=== PATIENT | male | born 1970 | race American Indian/Alaskan Native ===

== ENCOUNTER 2019-04-04 05:26 | Emergency (ER) | payer BC ==
[2019-04-04 05:52] VITALS: BP 157/98
--- NOTE | 2019-04-04 09:11 | Emergency Department Report ---
ED General Adult HPI - General Chief complaint: Eye Problems Stated complaint: RIGHT EYE PAIN Time Seen by Provider: 04/04/19 09:05 Source: patient Mode of arrival: Ambulatory Limitations: No Limitations - History of Present Illness Initial comments: Os is a 48-year-old male who thought he might have gotten something in his eye at work. This occurred on Friday but cause no problem. Patient states that by Friday his eye was getting red and irritated. He does not complain of visual change nor the sensation of a foreign body. He does not complain of pain. He denies any URI type symptoms. He reports no sick contact. -: Gradual, days(s) Location: right (high) Improves with: none Worsens with: none Associated Symptoms: denies other symptoms - Related Data Previous Rx's Medication Instructions Recorded Last Taken Type Sulfacetamide Sodium 5 ml OP TID #1 drops 04/04/19 Unknown Rx [Sulfacetamide Sodium 10%] ED Review of Systems ROS: Stated complaint: RIGHT EYE PAIN Other details as noted in HPI Constitutional: denies: chills, fever Eyes: other (eye redness). denies: eye pain, eye discharge, vision change ENT: denies: ear pain, throat pain Respiratory: denies: cough, shortness of breath, wheezing Cardiovascular: denies: chest pain, palpitations Endocrine: no symptoms reported Gastrointestinal: denies: abdominal pain, nausea, diarrhea Genitourinary: denies: urgency, dysuria Musculoskeletal: denies: back pain, joint swelling, arthralgia Skin: denies: rash, lesions Neurological: denies: headache, weakness, numbness, paresthesias Psychiatric: denies: anxiety, depression Hematological/Lymphatic: denies: easy bleeding, easy bruising ED Past Medical Hx - Past Medical History Previous Medical History?: Yes Hx Hypertension: Yes Hx Diabetes: Yes - Surgical History Past Surgical History?: No - Social History Smoking Status: Never Smoker Substance Use Type: Alcohol - Medications Home Medications: Home Medications Medication Instructions Recorded Confirmed Last Taken Type Sulfacetamide Sodium 5 ml OP TID #1 drops 04/04/19 Unknown Rx [Sulfacetamide Sodium 10%] ED Physical Exam - General Limitations: No Limitations General appearance: alert, in no apparent distress - Head Head exam: Present: atraumatic, normocephalic - Eye Eye exam: Present: PERRL, EOMI, other (I do not see evidence of a foreign body. There is minimal arcus senilis seen. The conjunctiva is injected. There is no periorbital swelling or conjunctival edema. The cornea appears intact. There is no defect. The anterior chamber appears clear and deep.) - ENT ENT exam: Present: mucous membranes moist - Neck Neck exam: Present: normal inspection. Absent: tenderness, meningismus - Respiratory Respiratory exam: Present: normal lung sounds bilaterally. Absent: respiratory distress - Cardiovascular Cardiovascular Exam: Present: regular rate, normal rhythm. Absent: systolic murmur, diastolic murmur, rubs, gallop - GI/Abdominal GI/Abdominal exam: Present: soft, normal bowel sounds. Absent: distended, tenderness, guarding, rebound, rigid - Rectal Rectal exam: Present: deferred - Extremities Exam Extremities exam: Present: normal inspection - Back Exam Back exam: Present: normal inspection - Neurological Exam Neurological exam: Present: alert, oriented X3, CN II-XII intact. Absent: motor sensory deficit - Psychiatric Psychiatric exam: Present: normal affect, normal mood - Skin Skin exam: Present: warm, dry, intact, normal color. Absent: rash ED Course Vital Signs 04/04/19 05:50 Temperature 98.8 F Pulse Rate 70 Respiratory 20 Rate Blood Pressure 157/98 O2 Sat by Pulse 97 Oximetry Critical care attestation.: If time is entered above; I have spent that time in minutes in the direct care of this critically ill patient, excluding procedure time. ED Disposition Clinical Impression: Conjunctivitis Qualifiers: Conjunctivitis type: acute Acute conjunctivitis type: unspecified Laterality: right Qualified Code(s): H10.31 - Unspecified acute conjunctivitis, right eye Disposition: DC-01 TO HOME OR SELFCARE Is pt being admited?: No Does the pt Need Aspirin: No Condition: Stable Instructions: Conjunctivitis (ED) Additional Instructions: I do not note a foreign body or healing area on your cornea. A full eye exam is imperative. See your eye doctor that you tells me you have available or Dr. Hopkins as listed. Return to the emergency department any acute change in her vision. It is essential that you get a full eye exam by a qualified I practitioner tomorrow. Avoid contact with others as the conjunctivitis may be contagious. Prescriptions: Sulfacetamide Sodium [Sulfacetamide Sodium 10%] 5 ml OP TID #1 drops Referrals: usual, kindergarten instructional assistant [Other] - 24 Hours BENJI DIAZ MD [Staff Physician] - [facility] Time of Disposition: 09:12
== END 2019-04-04 09:28 | disposition home or self-care (01) ==
LOC: ED 05:26
DX: H10.9 Unspecified conjunctivitis (principal); I10 Essential (primary) hypertension; E11.9 Type 2 diabetes mellitus without complications; F10.10 Alcohol abuse, uncomplicated; Z79.899 Other long term (current) drug therapy

== ENCOUNTER 2020-11-29 14:34 | Emergency (ER) | payer BC ==
[2020-11-29 15:06] VITALS: BP 132/94
--- NOTE | 2020-11-29 15:43 | XRay Report ---
CHEST PA AND LATERAL VIEWS INDICATION: sob. COMPARISON: 09/22/2019 FINDINGS: Support devices: None. Heart: Within normal limits. Lungs/Pleura: There is patchy airspace disease in the right mid to lower lung and left lower lung. Ap ices are clear. No pleural abnormality. IMPRESSION: 1. Bilateral pneumonia, mild. Findings are suggestive of viral pneumonia. Signer Name: Juan Pablo Pyle MD Signed: 11/29/2020 3:38 PM Workstation Name: [id number]
[2020-11-29 16:35] LABS: Hematocrit 48.2 % (35.5-45.6); Hemoglobin 16.2 gm/dl (11.8-15.2); Mean Corpuscular HGB Conc 34 % (32-34); Mean Corpuscular Volume 89 fl (84-94); Platelet Count 324 K/mm3 (140-440); Red Blood Count 5.45 M/mm3 (3.65-5.03); Red Cell Distribution Width 13.4 % (13.2-15.2)
[2020-11-29 16:45] LABS: Alanine Aminotransferase 25 units/L (7-56); Albumin 3.8 g/dL (3.9-5); Blood Urea Nitrogen 13 mg/dL (9-20); Calcium 9.8 mg/dL (8.4-10.2); Hemolysis Index 5
[2020-11-29 16:56] LABS: BUN/Creatinine Ratio 19
[2020-11-29 17:13] LABS: Anisocytosis RARE; Giant Platelets Rare; Total Cells Counted 100
--- NOTE | 2020-11-29 17:34 | Emergency Department Report ---
- General Chief Complaint: Weakness Stated Complaint: COVID SYMPTOMS Time Seen by Provider: 11/29/20 17:23 Source: patient Mode of arrival: Ambulatory Limitations: No Limitations - History of Present Illness Initial Comments: Patient is a 50-year-old male presents emergency room with complaints of symptoms of COVID-19 that began 11/23/2020. He has associated loss of sense of smell and taste. He states he is also been having fatigue, generalized weakness, chills, diarrhea, dry cough. He denies any fever, shortness of breath, chest pain, abdominal pain, leg swelling. He denies any sick contacts or recent travel. He has not been vaccinated for COVID-19. He has not been vaishali lynsey for COVID-19. PMHx DM and HTN. No allergies to medications. - Related Data Previous Rx's Medication Instructions Recorded Last Taken Type Sulfacetamide Sodium 5 ml OP TID #1 drops 04/04/19 Unknown Rx [Sulfacetamide Sodium 10%] Azithromycin [Zithromax TAB] 250 mg PO QDAY 5 Days #6 tablet 11/29/20 Unknown Rx Benzonatate [Tessalon Perles] 100 mg PO Q8HR PRN #12 capsule 11/29/20 Unknown Rx guaiFENesin/DEXTROMETHORPHAN 1 each PO Q6HR PRN #12 capsule 11/29/20 Unknown Rx [Coricidin Hbp Chest Benjamín-Cough] Allergies Allergy/AdvReac Type Severity Reaction Status Date / Time No Known Allergies Allergy Unverified 09/22/19 14:02 ED Review of Systems ROS: Stated complaint: COVID SYMPTOMS Other details as noted in HPI Comment: All other systems reviewed and negative ED Past Medical Hx - Past Medical History Previous Medical History?: Yes Hx Hypertension: Yes Hx Diabetes: Yes - Surgical History Past Surgical History?: No - Social History Substance Use Type: Alcohol - Medications Home Medications: Home Medications Medication Instructions Recorded Confirmed Last Taken Type Sulfacetamide Sodium 5 ml OP TID #1 drops 04/04/19 Unknown Rx [Sulfacetamide Sodium 10%] Azithromycin [Zithromax TAB] 250 mg PO QDAY 5 Days #6 tablet 11/29/20 Unknown Rx Benzonatate [Tessalon Perles] 100 mg PO Q8HR PRN #12 capsule 11/29/20 Unknown Rx guaiFENesin/DEXTROMETHORPHAN 1 each PO Q6HR PRN #12 capsule 11/29/20 Unknown Rx [Coricidin Hbp Chest Benjamín-Cough] ED Physical Exam - General Limitations: No Limitations General appearance: alert, in no apparent distress - Head Head exam: Present: atraumatic, normocephalic - Eye Eye exam: Present: normal appearance - ENT ENT exam: Present: mucous membranes moist - Respiratory Respiratory exam: Present: normal lung sounds bilaterally. Absent: respiratory distress, wheezes, rales, rhonchi, stridor, chest wall tenderness, accessory muscle use, decreased breath sounds, prolonged expiratory - Cardiovascular Cardiovascular Exam: Present: regular rate, normal rhythm, normal heart sounds. Absent: systolic murmur, diastolic murmur, rubs, gallop - Neurological Exam Neurological exam: Present: alert, oriented X3 - Psychiatric Psychiatric exam: Present: normal affect, normal mood - Skin Skin exam: Present: warm, dry, intact ED Course Vital Signs 11/29/20 11/29/20 15:04 16:52 Temperature 98 F Pulse Rate 84 Respiratory 16 16 Rate Blood Pressure 132/94 [Left] O2 Sat by Pulse 96 100 Oximetry ED Medical Decision Making - Lab Data Result diagrams: 11/29/20 15:59 11/29/20 15:59 Lab Results 11/29/20 11/29/20 Range/Units 15:59 15:59 WBC 5.1 (4.5-11.0) K/mm3 RBC 5.45 H (3.65-5.03) M/mm3 Hgb 16.2 H (11.8-15.2) gm/dl Hct 48.2 H (35.5-45.6) % MCV 89 (84-94) fl MCH 30 (28-32) pg MCHC 34 (32-34) % RDW 13.4 (13.2-15.2) % Plt Count 324 (140-440) K/mm3 Assumption % (Auto) Special Effects Makeup Artist Add Manual Diff Complete Total Counted 100 Seg Neuts % (Manual) 49.0 (40.0-70.0) % Lymphocytes % (Manual) 30.0 (13.4-35.0) % Monocytes % (Manual) 21.0 H (0.0-7.3) % Nucleated RBC % Not Reportable Seg Neutrophils # Man 2.5 (1.8-7.7) K/mm3 Band Neutrophils # 0.0 K/mm3 Lymphocytes # (Manual) 1.5 (1.2-5.4) K/mm3 Abs React Lymphs (Man) 0.0 K/mm3 Monocytes # (Manual) 1.1 H (0.0-0.8) K/mm3 Eosinophils # (Manual) 0.0 (0.0-0.4) K/mm3 Basophils # (Manual) 0.0 (0.0-0.1) K/mm3 Metamyelocytes # 0.0 K/mm3 Myelocytes # 0.0 K/mm3 Promyelocytes # 0.0 K/mm3 Blast Cells # 0.0 K/mm3 WBC Morphology Not Reportable Hypersegmented Neuts Not Reportable Hyposegmented Neuts Not Reportable Hypogranular Neuts Not Reportable Smudge Cells Not Reportable Toxic Granulation Not Reportable Toxic Vacuolation Not Reportable Dohle Bodies Not Reportable Pelger-Huet Anomaly Not Reportable Wesley Rods Not Reportable Platelet Estimate Not Reportable Clumped Platelets Not Reportable Plt Clumps, EDTA Not Reportable Large Platelets Not Reportable Giant Platelets Rare Platelet Satelliting Not Reportable Plt Morphology Comment Not Reportable RBC Morphology Not Reportable Dimorphic RBCs Not Reportable Polychromasia Not Reportable Hypochromasia Not Reportable Poikilocytosis Not Reportable Anisocytosis Rare Microcytosis Not Reportable Macrocytosis Not Reportable Spherocytes Not Reportable Pappenheimer Bodies Not Reportable Sickle Cells Not Reportable Target Cells Not Reportable Tear Drop Cells Not Reportable Ovalocytes Not Reportable Helmet Cells Not Reportable [place] Bodies Not Reportable [place] Rings Not Reportable Hernán Cells Not Reportable Bite Cells Not Reportable Crenated Cell Not Reportable Elliptocytes Not Reportable Acanthocytes (Spur) Not Reportable Rouleaux Not Reportable Hemoglobin C Crystals Not Reportable Schistocytes Not Reportable Malaria parasites Not Reportable Albino Bodies Not Reportable Hem Pathologist Commnt No Sodium 134 L (137-145) mmol/L Potassium 3.5 L (3.6-5.0) mmol/L Chloride 91.9 L (98-107) mmol/L Carbon Dioxide 31 H (22-30) mmol/L Anion Gap 15 mmol/L BUN 13 (9-20) mg/dL Creatinine 0.7 L (0.8-1.3) mg/dL Estimated GFR > 60 ml/min BUN/Creatinine Ratio 19 % Glucose 108 H (75-100) mg/dL Calcium 9.8 (8.4-10.2) mg/dL Total Bilirubin 0.50 (0.1-1.2) mg/dL AST 30 (5-40) units/L ALT 25 (7-56) units/L Alkaline Phosphatase 54 (35-129) units/L Total Protein 7.6 (6.3-8.2) g/dL Albumin 3.8 L (3.9-5) g/dL Albumin/Globulin Ratio 1.0 % - Radiology Data Radiology results: report reviewed Ordering Physician: SHAHIDA MORRELL MD Date of Service: 11/29/20 Procedure(s): XR chest routine 2V Accession Number(s): [id number] cc: ED MD PORSCHE Fluoro Time In Minutes: CHEST PA AND LATERAL VIEWS INDICATION: sob. COMPARISON: 09/22/2019 FINDINGS: Support devices: None. Heart: Within normal limits. Lungs/Pleura: There is patchy airspace disease in the right mid to lower lung and left lower lung. Apices are clear. No pleural abnormality. IMPRESSION: 1. Bilateral pneumonia, mild. Findings are suggestive of viral pneumonia. Signer Name: Juan Pablo Pyle MD Signed: 11/29/2020 3:38 PM Workstation Name: [id number] Transcribed By: TAINA Dictated By: Juan Pablo Pyle MD Electronically Authenticated By: Juan Pablo Pyle MD Signed Date/Time: 11/29/201537 DD/ 37 TD/TT: - Medical Decision Making Patient is a 50-year-old male presents emergency room with complaints of symptoms of COVID-19 that began 11/23/2020. He has associated loss of sense of smell and taste. He states he is also been having fatigue, generalized weakness, chills, diarrhea, dry cough. He denies any fever, shortness of breath, chest pain, abdominal pain, leg swelling. He denies any sick contacts or recent travel. He has not been vaccinated for COVID-19. He has not been tested for COVID-19. PMHx DM and HTN. No allergies to medications. Vitals are normal. No abnormality on physical examination as documented in chart. Chest x- ray: 1. Bilateral pneumonia, mild. Findings are suggestive of viral pneumonia. I personally ambulated patient in the emergency room for 2 minutes and oxygen saturation maintained 96% or higher on room air. Patient given prescription for medications. Advised patient Please take medication as prescribed. Please increase your fluid intake over the next several days. May take Tylenol as needed for fever or body aches. Follow-up with a primary care doctor for reexamination. Return to emergency room immediately for any new or worsening symptoms including but not limited to difficulty breathing, shortness of breath, severe chest pain, unable to tolerate by mouth intake, etc. Please self q uarantine for 10 days from the onset of your symptoms. Please do not go out in public. If you are around others at home please wear a mask. If you need to cough or sneeze please do so in a napkin and immediately throw it away and immediately wash your hands. Wash your hands frequently. Wipe everything down. Recommend for you to get COVID-19 testing. Critical care attestation.: If time is entered above; I have spent that time in minutes in the direct care of this critically ill patient, excluding procedure time. ED Disposition Clinical Impression: Opacities of both lungs present on chest x-ray, Suspected COVID-19 virus infection Disposition: DC- TO HOME OR SELFCARE Is pt being admited?: No Does the pt Need Aspirin: No Condition: Stable Instructions: COVID-19 Additional Instructions: Please take medication as prescribed. Please increase your fluid intake over the next several days. May take Tylenol as needed for fever or body aches. Follow-up with a primary care doctor for reexamination. Return to emergency room immediately for any new or worsening symptoms including but not limited to difficulty breathing, shortness of breath, severe chest pain, unable to tolerate by mouth intake, etc. Please self quarantine for 10 days from the onset of your symptoms. Please do not go out in public. If you are around others at home please wear a mask. If you need to cough or sneeze please do so in a napkin and immediately throw it away and immediately wash your hands. Wash your hands frequently. Wipe everything down. Recommend for you to get COVID-19 testing. Prescriptions: guaiFENesin/DEXTROMETHORPHAN [Coricidin Hbp Chest Benjamín-Cough] 1 each PO Q6HR PRN #12 capsule PRN Reason: cough/chest congestion Benzonatate [Tessalon Perles] 100 mg PO Q8HR PRN #12 capsule PRN Reason: cough Azithromycin [Zithromax TAB] 250 mg PO QDAY 5 Days #6 tablet Referrals: YUKO MARIN MD [Staff Physician] - 2-3 Days [facility] [Provider Group] - 2-3 Days Forms: Work/School Release Form(ED) Time of Disposition: 17:35 Print Language: BRUNEIAN
== END 2020-11-29 17:40 | disposition home or self-care (01) ==
LOC: ED 14:34
DX: R91.8 Other nonspecific abnormal finding of lung field (principal); I10 Essential (primary) hypertension; E11.9 Type 2 diabetes mellitus without complications; Z20.822 Contact with and (suspected) exposure to COVID-19; Z79.899 Other long term (current) drug therapy
CPT/HCPCS: 36415; 71046; 80053; 85007; 85025